=== PATIENT | female | born 1950 | race African-American/Black ===

== ENCOUNTER 2018-07-21 15:09 | Emergency (ER) | payer MEDICARE ==
[~2018-07-21] VITALS: Ht 160 cm; Wt 93.2 kg
[~2018-07-21 15:09] MED LIST: ACET1TAB12 PO; ATOR40TA28 PO; BUDE0.255 NEB; CITA-106 PO; CLON.3 PO; ERGO500044 PO; FERR-89 PO; FUROL PO; GUAIF10 PO; HYDR200T4 PO; IPRNEB IH; METO-558 PO; MYCO360T PO; PANT40TA25 PO; PRED1 PO; RIVA20TA PO; VERA240SR PO; VITAD1000 PO
[2018-07-21] MEDS ORDERED: KETOROLAC TROMETHAMINE 30 MG/ML VIAL IVP ONE (17:30)
[2018-07-21] MEDS ORDERED: SODIUM CHLORIDE 0.9% 1,000 ML IV ONE (17:30)
[2018-07-21 17:38] LABS: BASOPHILS % (AUTO) 0.2 % (0.0-2.0); EOSINOPHILS % (AUTO) 0.3 % (1.0-6.0); HEMATOCRIT 36.8 % (36-46); HEMOGLOBIN 11.6 g/dL (12.0-16.0); LYMPHOCYTES # (AUTO) 1.8 K/uL (1.0-4.8); LYMPHOCYTES % (AUTO) 13.8 % (22.0-44.0); MEAN CORPUSCULAR HEMOGLOBIN 27.6 pg (26.0-34.0); MEAN CORPUSCULAR HGB CONC 31.6 G/dL (31.0-37.0); MEAN CORPUSCULAR VOLUME 87 fL (80-100); MONOCYTES % (AUTO) 7.3 % (2.0-9.0); NEUTROPHILS # (AUTO) 10.3 K/uL (1.8-7.7); NEUTROPHILS % (AUTO) 78.4 % (40.0-70.0); PLATELET COUNT (AUTO) 125 K/uL (150-450); RED BLOOD CELL COUNT(AUTO) 4.21 MIL/uL (4.00-5.20); RED CELL DISTRIBUTION WIDTH 14.6 % (11.5-14.5)
[2018-07-21 18:04] LABS: CALCIUM, TOTAL 8.4 mg/dL (8.8-10.5); CREATININE 1.14 mg/dL (0.60-1.30); POTASSIUM 3.2 mmol/L (3.5-5.1)
[2018-07-21 18:06] LABS: LACTIC ACID 0.8 mmol/L (0.4-2.0)
[2018-07-21 18:10] LABS: ALBUMIN 2.6 g/dL (3.4-5.0); BILIRUBIN,TOTAL 0.9 mg/dL (0.1-1.0); C-REACTIVE PROTEIN QUANT 5.84 mg/dL (0.00-0.30); TOTAL PROTEIN, SERUM 6.6 g/dL (6.4-8.2)
[2018-07-21 19:40] LABS: APPEARANCE,URINE CLEAR (CLEAR); BILIRUBIN,URINE NEGATIVE (NEGATIVE); GLUCOSE, URINE (UA) NEGATIVE (NEGATIVE); KETONES,URINE NEGATIVE (NEGATIVE); LEUKOCYTE ESTERASE ,URINE NEGATIVE (NEGATIVE); NITRATE,URINE NEGATIVE (NEGATIVE); OCCULT BLOOD,URINE NEGATIVE (NEGATIVE); PROTEIN,URINE SEE CONFIRM (NEGATIVE)
[2018-07-21 20:05] LABS: SULFOSALICYLIC ACID,URINE 3+ (Negative)
[2018-07-21 20:08] LABS: BACTERIA,URINE None Seen /HPF (None Seen); RBC,URINE None Seen /HPF (0-2); SQUAMOUS EPITHELIAL CELL,UR Few /LPF (None Seen); WBC,URINE 0-2 /HPF (0-5)
[2018-07-21 21:00] VITALS: BP 117/87
[2018-07-21] MEDS ORDERED: MethylPREDNISolone SOD SUCC 125 MG/2 ML VIAL IVP ONE (21:00)
== END 2018-07-21 21:09 | disposition home or self-care (01) ==
LOC: EMS 15:12
DX: M32.9 Systemic lupus erythematosus, unspecified (principal); M79.10 Myalgia, unspecified site; E87.6 Hypokalemia; J81.0 Acute pulmonary edema; R11.2 Nausea with vomiting, unspecified; I48.91 Unspecified atrial fibrillation; J45.909 Unspecified asthma, uncomplicated; K21.9 Gastro-esophageal reflux disease without esophagitis; E78.00 Pure hypercholesterolemia, unspecified; I10 Essential (primary) hypertension; M19.90 Unspecified osteoarthritis, unspecified site; F32.9 Major depressive disorder, single episode, unspecified; Z88.8 Allergy status to other drugs, medicaments and biological substances
CPT/HCPCS: 36415; 71045; 80053; 81001; 83605; 83690; 83880; 84484; 85025; 86140; 87040; 93005; 96361; 96374; 96375; 99285; J1885; J2930; J7030